=== PATIENT | male | born 1965 | race Caucasian/White ===

== ENCOUNTER 2022-06-21 07:39 | Day surgery (SDC) | payer OTHER ==
[2022-06-21] MEDS ORDERED: Sodium Chloride 0.9% 1,000 ML IV SCH (08:45)
[2022-06-21] MEDS ORDERED: Propofol 200 MG/20 ML SDV ONE (09:21)
[2022-06-21] MEDS ORDERED: Midazolam 1 MG/ML 2 ML SDV ONE (09:21)
[2022-06-21] MEDS ORDERED: fentaNYL 100 MCG/2 ML SDV ONE (09:21)
== END 2022-06-21 10:32 | disposition home or self-care (01) ==
LOC: JP.SDS 07:39
PROVIDERS: ATTEND Surgery
DX: Z12.11 Encounter for screening for malignant neoplasm of colon (principal); G47.33 Obstructive sleep apnea (adult) (pediatric); I48.91 Unspecified atrial fibrillation; E66.9 Obesity, unspecified; Z86.010 Personal history of colon polyps; Z68.35 Body mass index [BMI] 35.0-35.9, adult
CPT/HCPCS: 45378; J2250; J2704; J3010; J7030